=== PATIENT | male | born 1985 | race Two or more races ===

== ENCOUNTER → 2025-05-11 | Emergency (ER) | payer OTHER | END | disposition home or self-care (01) | LOC: ER 11:53 | DX: S61.512A Laceration without foreign body of left wrist, initial encounter (principal); W45.8XXA Other foreign body or object entering through skin, initial encounter; Y93.89 Activity, other specified; Y92.018 Other place in single-family (private) house as the place of occurrence of the external cause; Y99.9 Unspecified external cause status; I10 Essential (primary) hypertension ==

== ENCOUNTER 2025-05-21 21:39 | Emergency (ER) | payer OTHER ==
[~2025-05-21] VITALS: Ht 195.6 cm; Wt 115.7 kg
[2025-05-21] MEDS ORDERED: COZAAR50 MG PO (22:05)
[2025-05-21] MEDS ORDERED: HYDRODIURIL12.5 MG PO (22:05)
== END 2025-05-22 00:24 | disposition home or self-care (01) ==
LOC: ER 21:39
DX: Z48.02 Encounter for removal of sutures (principal)